=== PATIENT | male | born 1955 | race Caucasian/White ===

== ENCOUNTER 2022-05-17 14:30 | Outpatient (REF) | payer OTHER, SELFPAY ==
[2022-05-17 14:05] LABS: HCT 38.8 % (40.0-50.0); HGB 12.9 g/dL (13.5-17.5); MCH 29.7 pg (27.0-33.0); MCHC 33.2 % (32.0-36.0); MCV 89 fL (80-95); MPV 9.4 fL (8.0-11.0); Platelet Count 439 10^3/uL (130-400); RBC 4.35 10^6/uL (4.36-5.78); RDW 12.3 % (11.8-14.1); RDW-SD 40.4 fL; WBC 12.85 10^3/uL (4.4-10.8)
[2022-05-17 14:21] LABS: ALT 17 U/L (16-63); AST < 5 U/L (15-37); Albumin 3.6 g/dL (3.4-5.0); Alkaline Phosphatase 91 U/L (46-116); Anion Gap 8.2 mmol/L (3-11); BUN 18 mg/dL (7-18); Bilirubin, Total 0.4 mg/dL (0.2-1.0); CO2 29.8 mmol/L (21.0-32.0); CREATININE 1.1 mg/dL (0.70-1.30); Calcium 9.3 mg/dL (8.5-10.1); Chloride 102 mmol/L (98-107); Glucose 106 mg/dL (74-106); Potassium 4.6 mmol/L (3.5-5.1); Sodium 140 mmol/L (136-145); Total Protein 7.8 g/dL (6.4-8.2)
== END 2022-05-17 14:31 | disposition home or self-care (01) ==
LOC: LBN 14:30
PROVIDERS: Visit Provider Physician Assistant Medical
DX: M10.9 Gout, unspecified (principal)
CPT/HCPCS: 80053; 85027

== ENCOUNTER 2022-06-19 10:44 | Outpatient (REF) | payer OTHER, SELFPAY ==
[2022-06-19 15:16] LABS: HCT 40.3 % (40.0-50.0); HGB 13.1 g/dL (13.5-17.5); MCHC 32.5 % (32.0-36.0); MCV 89 fL (80-95); MPV 9.5 fL (8.0-11.0); Platelet Count 271 10^3/uL (130-400); RBC 4.52 10^6/uL (4.36-5.78); RDW 13.3 % (11.8-14.1); RDW-SD 43.6 fL; WBC 7.35 10^3/uL (4.4-10.8)
[2022-06-19 16:28] LABS: ALT 72 U/L (16-63); AST 35 U/L (15-37); Albumin 3.6 g/dL (3.4-5.0); Alkaline Phosphatase 81 U/L (46-116); Anion Gap 9.1 mmol/L (3-11); BUN 23 mg/dL (7-18); Bilirubin, Total 0.3 mg/dL (0.2-1.0); CO2 25.9 mmol/L (21.0-32.0); CREATININE 1.1 mg/dL (0.70-1.30); Calcium 9.1 mg/dL (8.5-10.1); Chloride 105 mmol/L (98-107); Glucose 123 mg/dL (74-106); Potassium 4.4 mmol/L (3.5-5.1); Sodium 140 mmol/L (136-145); Total Protein 7.9 g/dL (6.4-8.2); Uric Acid 10.1 mg/dL (3.5-7.2)
[2022-06-19 16:53] LABS: Calculated LDL 156 mg/dL (<100); Cholesterol 222 mg/dL (<200); HDL Cholesterol 44 mg/dL (40-60); Triglyceride 112 mg/dL (<150)
== END 2022-06-19 10:45 | disposition home or self-care (01) ==
LOC: NCHCN 10:44
PROVIDERS: Visit Provider Family Medicine
DX: Z00.00 Encounter for general adult medical examination without abnormal findings (principal); Z13.220 Encounter for screening for lipoid disorders; M10.9 Gout, unspecified; Z87.442 Personal history of urinary calculi
CPT/HCPCS: 80053; 80061; 85027; 84550

== ENCOUNTER 2022-07-22 11:43 | Day surgery (SDC) | payer OTHER, SELFPAY ==
[2022-07-22 12:36] VITALS: BP 168/97; PULSE 84; RESP 16; TEMP 36.6; O2SAT 96
[2022-07-22] MEDS: Tropicam./Phenyleph. (1/2.5%) 5 ML BTL OD ×3 (12:57→13:07)
--- NOTE | 2022-07-22 13:26 | W.ANESPRE ---
General Info Date of Service Date Performed: 07/22/22 Height: 5 ft 11 in Weight: 100.4 kg Body Mass Index (BMI): 30.9 Surgical Procedure: Operation Date: 07/22/22 15:40 Proposed Procedure Side Surgeon p Cataract Extraction with IOL Implant Right Noe Hess MD Meds Allergies and Home Medications Allergies Allergy/AdvReac Type Severity Reaction Status Date / Time No Known Allergies Allergy Verified 07/22/22 12:34 Home Medication Medication Instructions Recorded allopurinol 300 mg tablet 1 tab PO DAILY 07/18/22 colchicine 0.6 mg tablet 2 tab PO DIRECTED 07/18/22 simvastatin 20 mg tablet 1 tab PO HS 07/18/22 ibuprofen 800 mg tablet 800 mg PO Q6H PRN 07/22/22 Current Visit Medications: Current Medications Generic Name Dose Route Start Last Admin Trade Name Freq PRN Reason Stop Dose Admin Acetaminophen 1,000 mg 07/22/22 06:00 Acetaminophen 500 Mg Tab PO Q4H PRN PRN Miscellaneous Medication 0 ml 07/22/22 06:00 Prednisolone 1%, Moxifloxacin 0.5%, Nepafenac 0.1% 5ml Btl OD DIRECTED [facility] Miscellaneous Medication 0 ml 07/22/22 06:00 07/22/22 13:07 Tropicam./Phenyleph. (1/2.5%) 5 Ml Btl OD 1 drp DIRECTED [facility] Administration Tetracaine HCl 0 ml 07/22/22 06:00 Tetracaine 0.5% 4 Ml Btl OD DIRECTED [facility] Medical History Medical History Gout HLD (hyperlipidemia) Prediabetes Tobacco Smoking/Tobacco Use Status: Never Alcohol Alcohol Intake: current Alcohol intake frequency: a few times a week Substance Use Substance use: Never Substance use type: does not use Vital Signs and Lab Results Vital Signs Most Recent Vital Signs in EMR: Most Recent Vital Signs Temp Pulse Resp BP Pulse Ox 36.6 C 84 16 168/97 H 96 07/22/22 12:36 07/22/22 12:36 07/22/22 12:36 07/22/22 12:36 07/22/22 12:36 Lab Results Blood Type / Crossmatch: No Data to Display Complete Blood Count: No Data to Display Complete Metabolic Panel: No Data to Display Liver Function Panel: No Data to Display Coagulation Panel: No Data to Display Cardiac Panel: No Data to Display Arterial Blood Gas: No Data to Display Venous Blood Gas: No Data to Display Pancreas Panel: No Data to Display Thyroid Panel: No Data to Display Infectious Disease: No Data to Display Blood Cultures: No Data to Display Toxicology Panel: No Data to Display Anesthesia Assessment and Plan Anesthesia History Personal History: No History of Anesthesia Complications Family History: No Family History of Anesthesia Complications Exercise Tolerance Exercise Tolerance: Metabolic Equivalents>4 Cardiac & Pulmonary Exam Cardiac Exam: Normal S1/S2 Heart Sounds Pulmonary Exam: Clear Bilateral Breath Sounds Implantable Cardiac Device Does patient have a Pacemaker or an ICD?: No Airway Exam Known Difficult Airway: No Mallampati Class: 3 Mouth Opening: Narrow (< 3cm) Thyromental Distance: Greater than 3 cm Facial Hair: Full [place] Neck Range of Motion: Full ROM Neck Circumference: Normal Teeth Condition: Normal Dentition ASA Classification ASA Score: ASA 2 Emergency Case?: No NPO Status NPO Status: NPO Clears >2 hours, Solids >8 hours Anesthesia Plan Resuscitation Status: Full Code Anesthesia Technique: MAC Anesthesia Airway Planned: Natural Airway Monitors Used: Standard Monitors
[2022-07-22 13:46] VITALS: BMI 30.9
[2022-07-22] MEDS: Tetracaine 0.5% 4 ML BTL OD (14:01)
[2022-07-22] MEDS: Balanced Salt Soln.-PLUS 500 ML BAG (14:01)
[2022-07-22] MEDS: Duovisc Viscoelastic System EACH 1 EACH (14:02)
[2022-07-22] MEDS: Lidocaine 1% Pres-Free 5 ML VIAL (14:02)
[2022-07-22] MEDS: Lidocaine 2% Jelly 6 ML SYR (14:03)
[2022-07-22] MEDS: Povidone-Iodine Ophth 30 ML BTL (14:04)
[2022-07-22] MEDS: Trypan Blue 0.06% 0.5 ML SYR (14:04)
[2022-07-22 14:30] VITALS: BP 164/91; PULSE 86; RESP 16; TEMP 36; O2SAT 97
--- NOTE | 2022-07-22 14:35 | W.PM.DSUDISC ---
Discharge Plan Disposition Patient Disposition: HOME Condition: Good Discharge Details Attending Provider: Noe Hess Home Meds and New Rx's Prescriptions: No Action simvastatin 20 mg tablet 1 tab PO HS Label Comments: TAKE ONE TABLET BY MOUTH EVERY EVENING allopurinol 300 mg tablet 1 tab PO DAILY Label Comments: TAKE ONE TABLET BY MOUTH EVERY DAY colchicine 0.6 mg tablet 2 tab PO DIRECTED Label Comments: TAKE 2 TABLETS BY MOUTH DIRECTED THEN 1 TABLET 1 HOUR LATER, THEN TWO TIMES A DAY ibuprofen 800 mg Tablet 800 mg PO Q6H PRN Discharge Instructions Stand Alone Forms: Post-op Topical Cataract, Matias Phan (DSU) Discharge Orders Discharge Orders: Discharge Order (Routine); Ordered 07/22/22 Ordered By: Noe Hess DS: Diagnosis Discharge Diagnosis (1) Cortical cataract of right eye: Status: Resolved (2) Nuclear sclerotic cataract of right eye: Status: Resolved (3) Posterior subcapsular age-related cataract, right eye: Status: Resolved
--- NOTE | 2022-07-22 14:37 | ROE_ITS ---
Date of service: 07/22/22 Time of Service: 14:37 Operative Note Operative Note DATE OF PROCEDURE: 07/22/22 PRE-OP DIAGNOSIS: Mature white cataract, right eye Absent red reflex, right eye POST-OP DIAGNOSIS: same Severe generalized zonular laxity, right eye PROCEDURE: Cataract extraction using phacoemulsification with intraocular lens implantation, right eye, using capsular staining with Vision Blue Insertion of Morcher Type 15 capsular tension ring, right eye SURGEON: Noe Hess ANESTHESIA TYPE: Local By Surgeon and MAC Refer to Anesthesia Record PATHOLOGY: none sent COMPLICATIONS: None Patient was transported to: same day Patient's condition: stable Implants: [employer] / [employer] Tecnis [id number] Indications: Progressive visual loss due to cataract, right eye Procedure Description: CATARACT SURGERY OPERATIVE REPORT PREOPERATIVE DIAGNOSIS: 1. Mature white cataract, right eye 2. Poor red reflex secondary to #1 POSTOPERATIVE DIAGNOSIS: Same OPERATION: 1. Cataract extraction using phacoemulsification with posterior chamber intraocular lens implant, right eye. 2. Capsular staining with Vision Blue 3. Insertion of Morcher Type 15 capsular tension ring, right eye IOL: IOL Puppy Walker/Model: [employer] / CHRISTY Tecnis [id number] IOL Power: + 20.5 diopters IOL Serial Number: [id number] Optic Diameter: 6.0mm Haptic/Overall Diameter: 13.0mm PHACO INFO: Logan [employer] Vision System with OZil and Active Fluidics Cumulative Dispersed Energy (CDE): 35.11 seconds SURGEON: Noe Hess MD, KIRSTEN ANESTHESIA: Monitored Anesthesia Care (MAC), with local sub-tenon's anesthetic infiltration COMPLICATIONS: None SPECIMENS: None INDICATIONS FOR PROCEDURE: The patient is a 66-year-old male with history of diminished visual acuity in his right eye. He is noted to have a mature white cataract with dense nuclear sclerosis in the right eye with vision of light perception. The option of cataract surgery was offered to the patient and he wished to proceed. PROCEDURE: The correct surgical eye was identified and marked as the right eye and the pupil was dilated in the preoperative area using mydriatics and cycloplegics. The dilated pupil size was 7.0 mm. The patient elected to proceed without oral sedation. The patient was brought to the operating room where cardiopulmonary monitoring was instituted and surgical time-out was performed, confirming the correct operative eye and IOL power. Topical anesthesia was administered and ophthalmic povidone-iodine 5% was instilled into the conjunctival fornices. Lidocaine gel was applied to the cornea and the zuleyka-ocular area was prepped with Betadine 10% solution and draped in the usual sterile fashion for intraocular surgery, including an aperture drape. A Tegaderm transparent film dressing was cut in half and used to cover the lashes and lid margins. Care was taken to sequester the lashes and lid margins under the Tegaderm dressing. A lid speculum was placed between the lids of the operative eye and the Logan [employer] Revalia operating microscope was maneuvered into position. Wagner scissors were then used to make a conjunctival buttonhole approximately 6mm posterior to the limbus in the inferonasal quadrant. Blunt dissection was carried out to expose bare sclera, and a blunt-tipped sub-tenon?s anesthesia cannula was introduced and passed posteriorly along the globe where non- preserved plain lidocaine was injected into posterior sub-Tenon?s space. A sideport knife was used to make a paracentesis port inferotemporally. Intraocular phenylephrine/lidocaine was injected into the anterior chamber. Air was injected into the anterior chamber, followed by Vision Blue, which was painted over the anterior capsule and then irrigated out with BSS. The anterior chamber was filled with viscoelastic. A keratome knife was used to create a 2- plane near clear corneal tunnel extending approximately 2 mm into clear cornea superior temporally.. A flap was raised on the anterior capsule and c apsulorhexis forceps were used to complete a continuous curvilinear capsulorhexis of 4.8 mm. Capsule was noted to be extremely thin with significant generalized zonular laxity. Balanced salt solution was then used to perform cortical cleaving hydrodissection and nuclear hydrodelineation until the lens could be freely rotated within the capsular bag. The lens nucleus was then disassembled and re moved within the capsular bag and iris plane using phacoemulsification. Additional Viscoat was injected intermittently to protect the corneal endothelium residual cortical material was removed using the I/A handpiece. The posterior capsule was carefully polished to remove as much residual lens epithelial cells as safely possible. The capsular bag was then inflated and the anterior chamber deepened with viscoelastic. A Morcher Type 15 capsular tension ring was then inserted into the capsular bag without difficulty. The lens implant described above was inserted into the capsular bag using the CHRISTY [place] Injector. A Kuglen hook was used to dial the IOL into position. Residual viscoelastic was then removed first from posterior to the IOL, then from the anterior chamber using the I/A handpiece. The lens implant was noted to center nicely within the capsular bag. The incisions were stromally hydrated, and the anterior chamber was reformed using BSS. Then 0.5cc of moxifloxacin 1.0mg/ml were injected into the capsular bag and anterior chamber. The incisions were checked with a Weck spear and found to be secure. Several drops of ophthalmic povidone-iodine 5% were then applied to the eye followed by two drops of Imprimis combination prednisolone/moxifloxacin/nepafenac solution. The drapes were removed and a clear plastic protective eye shield was placed over the eye. The patient was then returned to Same Day Surgery in stable condition.
--- NOTE | 2022-07-22 14:48 | W.ANESPOSTOP ---
Postoperative Evaluation Date, Time and Location Date Performed: 07/22/22 Time Performed: 14:30 Patient Location: Day Surgery Unit Vital Signs Most Recent Imported Vital Signs: Most Recent Vital Signs Temp Pulse Resp BP Pulse Ox 36 C L 86 16 164/91 H 97 07/22/22 14:30 07/22/22 14:30 07/22/22 14:30 07/22/22 14:30 07/22/22 14:30 Pain Score Most Recent Pain Score: Most Recent Pain Score Pain Level 0 07/22/22 14:30 Assessment Mental Status: Awake (Alert & Oriented to Patient Baseline) Airway and Respiratory Function: Patent airway with normal (patient baseline) respiratory exam Cardiovascular Function: Hemodynamically Stable Hydration Status: Adequately Hydrated Nausea & Vomiting: No Nausea or Vomiting Pain: Pt. Denies Any Pain Peripheral Nerve Block: Patient did not receive a nerve block
== END 2022-07-22 14:47 | disposition home or self-care (01) ==
PROVIDERS: Visit Provider Ophthalmology
PROC: (CPT 66982; principal; 2022-07-22 15:30)
DX: H25.041 Posterior subcapsular polar age-related cataract, right eye (principal); H26.8 Other specified cataract; R73.03 Prediabetes; M10.9 Gout, unspecified
CPT/HCPCS: 66982; V2632